=== PATIENT | male | born 1960 | race Two or more races ===

== ENCOUNTER 2019-04-18 17:46 | Emergency (ER) | payer MEDICAID ==
[~2019-04-18] VITALS: Ht 167.6 cm; Wt 71.7 kg
[2019-04-18 18:27] VITALS: BP 151/95
--- NOTE | 2019-04-18 19:32 | NUR ---
Patient discharged to home in stable condition. Written and verbal after care instructions given. Patient verbalizes understanding of instruction. Pt ambulatory with a steady gait
== END 2019-04-18 19:34 | disposition home or self-care (01) ==
LOC: ER 17:48
DX: F15.10 Other stimulant abuse, uncomplicated (principal); F41.9 Anxiety disorder, unspecified; F32.9 Major depressive disorder, single episode, unspecified; Z98.890 Other specified postprocedural states